=== PATIENT | female | born 1965 | race Caucasian/White ===

== ENCOUNTER 2017-05-30 19:17 | Emergency (ER) | payer OTHER ==
[~2017-05-30] VITALS: Ht 167.6 cm; Wt 86.2 kg
[2017-05-30 19:24] VITALS: BP 125/86
--- NOTE | 2017-05-30 19:25 | NUR ---
TRIAGE UNABLE TO COMPLETE FULL TRIAGE DUE TO PATIENT INABILITY TO ANSWER QUESTIONS. PATIENT IS HARD TO AROUSE AND INCOMPREHENSIBLE WHEN SPEAKING.
--- NOTE | 2017-05-30 19:30 | NUR ---
DR VENEGAS AT BEDSIDE, RAISED VOICE AWAKENS PATIENT EASILY AND IS ALERT AND ORIENTED. ANSWERS ALL QUESTIONS APPROPRIATELY. STATES SHE WILL TRY TO USE THE RESTROOM FOR A URINE SAMPLE.
--- NOTE | 2017-05-30 19:41 | ER.PDOC ---
General Chief Complaint: Overdose Stated Complaint: OVERDOSE Time seen by MD: 19:34 Source: family, EMS History of Present Illness Initial Comments Possible overdose. Patient takes T4 and Flexeril at home. No one is actually sure if she overdosed. Timing/Duration: this evening Mechanism: Overdose Allergies: Coded Allergies: doxycycline (Verified Allergy, Severe, Swelling, 05/30/17) B/P GOES UP Past Medical History Medical History: other (Chronic left hip pain) Surgical History: hysterectomy LMP (females 10-50): hysterectomy Family History Significant Family History: no pertinent family hx Review of Systems Constitutional: no symptoms reported EENTM: no symptoms reported Respiratory: no symptoms reported Cardiovascular: no symptoms reported Gastrointestinal: no symptoms reported Psychiatric/Neurological: no symptoms reported All Other Systems: Reviewed and Negative Physical Exam General Appearance: No acute distress, Alert EENT: No nystagmus Neck: Non-Tender, Full Range of Motion, Supple, Normal Inspection Respiratory: chest non-tender, lungs clear, normal breath sounds, no respiratory distress, no accessory muscle use Cardiovascular: Normal Peripheral Pulses, Regular Rate, Rhythm, No Edema, No Gallop, No JVD, No Murmur Gastrointestinal: Normal Bowel Sounds, No Organomegaly, No Pulsatile Mass, Non Tender, Soft Extremities: Non-Tender, Normal Range of Motion, No Evidence of Trauma, No Edema Neurological/Psychiatric: Alert, Normal Mood/Affect, Calm, outdoor fitness trainer II-XII NML as Tested, Oriented x 3 Appearance/Memory/Insight: Appropriate Appearance, Appropriate Insight, Neat, No Memory Impairment Behavior/Eye Contact/Speech: Cooperative, Good Eye Contact, Normal Speech Thoughts/Hallucinations: Normal Thought Pattern Results/Orders Results/Orders Laboratory Tests Test 05/30/17 19:40 05/30/17 20:21 White Blood Count 8.3 10^3/uL (4.5-11.0) Red Blood Count 4.63 10^6/uL (4.00-5.20) Hemoglobin 13.7 g/dL (12.0-15.0) Hematocrit 42.8 % (36.0-46.0) Mean Corpuscular Volume 92.4 fL (78-100) Mean Corpuscular Hemoglobin 29.6 pg (26-34) Mean Corpuscular Hemoglobin Concent 32.0 g/dL (33-37) Red Cell Distribution Width 13.3 % (11.5-14.5) Platelet Count 253 10^3/uL (150-400) Mean Platelet Volume 9.8 fL (7.8-11.0) Neutrophils (%) (Auto) 69.8 % (41.0-85.0) Lymphocytes (%) (Auto) 22.8 % (24.0-44.0) Monocytes (%) (Auto) 7.1 % (5.0-12.0) Neutrophils # (Auto) 5.8 10^3/uL (1.8-7.7) Lymphocytes # (Auto) 1.9 10^3/uL (1.0-4.8) Monocytes # (Auto) 0.6 10^3/uL (0.3-0.8) Absolute Immature Granulocyte (auto 0.02 10^3 u/L (0-2) Eosinophils % 0.0 % (0.0-5.0) Basophils % 0.1 % (0.0-0.2) Basophils # 0.0 10^3/uL (0.0-0.1) Eosinophil Count 0.0 10^3/uL (0.0-0.2) Sodium Level 139 mmol/L (132-145) Potassium Level 4.4 mmol/L (3.6-5.2) Chloride Level 104.0 mmol/L (96-109) Carbon Dioxide Level 24.9 mmol/L (20.0-32) Anion Gap 14.5 Blood Urea Nitrogen 12 mg/dL (7-18) Creatinine 1.12 mg/dL (0.59-1.40) Estimated GFR () 62.3 (>/=60) BUN/Creatinine Ratio 10.0 Glucose Level 110 mg/dL (70-110) Calcium Level 8.8 mg/dL (8.4-10.5) Total Bilirubin 0.7 mg/dL (0.2-1.0) Aspartate Amino Transf (AST/SGOT) 19 U/L (0-35) Alanine Aminotransferase (ALT/SGPT) 32 U/L (12-78) Alkaline Phosphatase 85 U/L (50-136) Troponin I 0.03 ng/mL (0.00-0.05) Total Protein 7.7 g/dL (6.4-8.2) Albumin 3.7 g/dL (3.4-5.0) Globulin 4.0 Salicylates Level < 2.8 mg/dL (2.8-20.0) Acetaminophen Level 20 ug/mL (10-30) Serum Alcohol < 3 mg/dL (3-50) Percent Immature Gran (Cell Imm) 0.20 % (0.00-0.50) Urine Collection Type CCMS Urine Color YELLOW (YELLOW) Urine Appearance HAZY (CLEAR) Urine Bilirubin NEGATIVE MG/DL (NEGATIVE) Urine Ketones NEGATIVE (NEGATIVE) Urine Specific [place] 1.025 (1.005-1.035) Urine pH 5 (5.0-6.0) Urine Protein NEGATIVE (NEGATIVE) Urine Urobilinogen NORMAL (NEGATIVE) Urine Nitrate NEGATIVE (NEGATIVE) Urine Leukocyte Esterase NEGATIVE (NEGATIVE) Urine Blood 10 TR (NEGATIVE) Urine RBC 0-2 RBC/HPF (NONE SEEN) Urine WBC NONE SEEN WBC/HPF (0-2) Urine Squamous Epithelial Cells FEW #/HPF (FEW) Urine Amorphous Sediment SMALL (NONE SEEN) Urine Bacteria NONE SEEN (NONE SEEN) Urine Other MUCUS 2+ #/HPF Urine Glucose NORMAL (NEGATIVE) Urine Opiates, Qualitative POSITIVE ng/mL (CUT-OFF:300) Urine Methadone, Qualitative NEGATIVE ng/mL (CUT-OFF:300) Urine Amphetamine Qualitative NEGATIVE ng/mL (CUTOFF:1000) Urine Barbiturates, Qualitative NEGATIVE ng/mL (CUT-OFF:200) Urine Phencyclidine Screen NEGATIVE ng/mL (CUT-OFF:25) Urine MDMA (Ecstasy), Qualitative NEGATIVE ng/mL (CUT-OFF:300) Urine Benzodiazepines, Qualitative NEGATIVE ng/mL (CUT-OFF:200) Urine Cocaine Qualitative NEGATIVE ng/mL (CUT-OFF:300) Ur Tetrahydrocannabinol (THC) Scrn NEGATIVE ng/mL (CUT-OFF:50) Administered Medications Medications (Trade) Dose Ordered Sig/Neil Route PRN Reason Start Time Stop Time Status Last Admin Dose Admin Naloxone HCl (Narcan) 0.4 mg STAT STAT IV 05/30/17 20:51 05/30/17 20:52 DC 05/30/17 20:52 Progress Progress Patient is doing fine, denies SI or HI. She says that she was upset with her Ex . Departure Time of Disposition: 21:09 Disposition: 01 HOME, SELF-CARE Impression: Primary Impression: Overdose Qualified Codes: T50.904A - Poisoning by unspecified drugs, medicaments and biological substances, undetermined, initial encounter Condition: Improved Additional Instructions: F/U with your PCP in 2-3 days Duration or Time Spent with Pa: 90 mins RUBI,JIAN Spencer MD May 30, 2017 19:41
--- NOTE | 2017-05-30 19:45 | NUR ---
CT TRANSFERRED TO CT VIA STRETCHER
--- NOTE | 2017-05-30 19:46 | PCM.EKG ---
[facility] Test Date: 2017-05-30 Test Time: 19:45:13 Pat Name: SOILA MILLER Department: Room: Gender: F Dermatology Nurse: ALBERTO : 1965 Requested By: JIAN VENEGAS Order Number: [id number] Reading MD: Jian VENEGAS Measurements Intervals [place] Rate: 98 P: 59 AK: 148 QRS: 65 QRSD: 106 T: 21 QT: 362 QTc: 462 Interpretive Statements Normal sinus rhythm Normal ECG No previous ECG available for comparison Electronically Signed On 06-03-2017 5:55:20 CDT by Jian VENEGAS Please click the below link to view image of tracing.
[2017-05-30 19:51] LABS: BASOPHIL % 0.1 % (0.0-0.2); HEMOGLOBIN 13.7 g/dL (12.0-15.0); LYMPHOCYTES # 1.9 10^3/uL (1.0-4.8); LYMPHOCYTES % 22.8 % (24.0-44.0); MEAN CELL HGB 29.6 pg (26-34); MEAN CORP VOLUME 92.4 fL (78-100); MEAN PLATELET VOLUME 9.8 fL (7.8-11.0); MONOCYTES # 0.6 10^3/uL (0.3-0.8); MONOCYTES % 7.1 % (5.0-12.0); NEUTROPHIL # 5.8 10^3/uL (1.8-7.7); NEUTROPHILS % 69.8 % (41.0-85.0); RED CELL DISTRIBUTION WIDTH 13.3 % (11.5-14.5); WHITE BLOOD CELL 8.3 10^3/uL (4.5-11.0)
--- NOTE | 2017-05-30 20:00 | NUR ---
BACK FROM CT AT THIS TIME. STATES SHE THINKS SHE CAN USE THE RESTROOM NOW. ASSISTED TO WHEELCHAIR, TAKEN TO RESTROOM.
--- NOTE | 2017-05-30 20:10 | NUR ---
UA PATIENT UNABLE TO VOID, HAS URINATED IN HER CLOTHING EXPLAINED THE NEED FOR URINE BEFORE DISCHARGE, EXPLAINED STRAIGHT CATH PROCEDURE.
--- NOTE | 2017-05-30 20:13 | NUR ---
STRAIGHT CATH 15FR CATH USING STERILE TECHNIQUE 75CC DARK CLOUDY URINE WITH FOUL ODOR SENT TO LAB
--- NOTE | 2017-05-30 20:17 | DIREP ---
PROCEDURE:CT HEAD WITHOUT CONTRAST TECHNIQUE:Axial cuts were obtained through the head, without intravenous contrast material. The images were viewed at brain and bone settings. COMPARISON:None. INDICATIONS:Lethargy FINDINGS: VENTRICLES:Normal. CEREBRUM:Normal. No intracranial hemorrhage, large territory infarct or space-occupying mass. CEREBELLUM:Normal. BRAINSTEM:Normal. SKULL:Normal. SINUSES:Clear. OTHER:None CONCLUSION:No acute intracranial abnormality. Dictated by: Mary Richmond MD on 05/30/2017 at 08:14 PM
[2017-05-30 20:24] LABS: BILIRUBIN,URINE NEGATIVE (NEGATIVE); UROBILINOGEN,URINE NORMAL (NEGATIVE)
[2017-05-30 20:25] LABS: APPEARANCE,URINE HAZY (CLEAR); UA COLOR YELLOW (YELLOW)
[2017-05-30 20:27] LABS: ACETAMINOPHEN 20 ug/mL (10-30); ALANINE AMINOTRANSFERASE(ML) 32 U/L (12-78); ALKALINE PHOSPHATASE 85 U/L (50-136); ASPARTATE AMINO TRANSFERASE 19 U/L (0-35); CALCIUM 8.8 mg/dL (8.4-10.5); CARBON DIOXIDE 24.9 mmol/L (20.0-32); GLUCOSE 110 mg/dL (70-110)
[2017-05-30 20:46] LABS: WBC,URINE NONE SEEN WBC/HPF (0-2)
[2017-05-30] MEDS ORDERED: NARCAN ONE (20:50)
[2017-05-30] MEDS ORDERED: NARCAN IV STA (20:51)
--- NOTE | 2017-05-30 21:10 | NUR ---
[facility] CALLED FOR PATIENT TRANSPORT HOME. PATIENT STATES SHE HAS $10 TO PAY FOR [facility].
[2017-05-30 21:15] VITALS: BP 116/80
--- NOTE | 2017-05-30 21:16 | NUR ---
IV DC 20G IV TO LEFT HAND, TAKEN OUT, TIP INTACT COTTON BALL, COBAN WRAPPED TO STOP BLEEDING INSTRUCTED PATIENT TO LEAVE IN PLACE UNTIL SHE ARRIVED HOME.
[2017-05-30 21:20] VITALS: BP 116/80
== END 2017-05-30 21:13 | disposition home or self-care (01) ==
LOC: ER 19:17
DX: T39.1X4A Poisoning by 4-Aminophenol derivatives, undetermined, initial encounter (principal); T48.1X4A Poisoning by skeletal muscle relaxants [neuromuscular blocking agents], undetermined, initial encounter; Z90.710 Acquired absence of both cervix and uterus; G89.29 Other chronic pain; M25.552 Pain in left hip; Z88.1 Allergy status to other antibiotic agents; Y92.099 Unspecified place in other non-institutional residence as the place of occurrence of the external cause
CPT/HCPCS: 36415; 70450; 80053; 80307; 81000; 84484; 85025; 93005; 96374; 99285; G0481; G0482; G0483; J2310